=== PATIENT | male | born 1945 | race Caucasian/White ===

== ENCOUNTER 2017-03-01 17:57 | Emergency (ER) | payer OTHER ==
[2017-03-01 18:10] VITALS: BP 134/87
--- NOTE | 2017-03-01 18:18 | EDM.PDOC ---
[id number] 4d L ARM FISHHOOK Time Seen by Provider: 03/01/17 18:05 Source of Information: Reports: Patient History Limitations: Reports: No Limitations - History of Present Illness INITIAL COMMENTS - FREE TEXT/NARRATIVE: 71-year-old male with a small fishhook in the back of his left arm. No other complaints. Onset: Today Location: Reports: Upper Extremity, Left Severity: Mild - Related Data Allergies Allergy/AdvReac Type Severity Reaction Status Date / Time No Known Allergies Allergy Verified 11/28/13 14:24 Home Meds: Home Meds Acetaminophen/Diphenhydramine 11/28/13 [History] Ascorbic Acid 11/28/13 [History] Aspirin 11/28/13 [History] Atorvastatin Calcium 11/28/13 [History] Carnitine 11/28/13 [History] Chromium 11/28/13 [History] Clonazepam 11/28/13 [History] Coenzyme Q10 11/28/13 [History] Cyanocobalamin 11/28/13 [History] Fatty Acid 11/28/13 [History] Flaxseed Oil 11/28/13 [History] Folic Acid 11/28/13 [History] Grape Seed 11/28/13 [History] Losartan 11/28/13 [History] Magnesium Complex 11/28/13 [History] Metoprolol Tartrate 11/28/13 [History] Milk Thistle 11/28/13 [History] Castella Olivarez Extract 11/28/13 [History] [place] 3 Acid 11/28/13 [History] Resveratrol 11/28/13 [History] Ribose 11/28/13 [History] Selenium 11/28/13 [History] Vitamin D3 11/28/13 [History] Vitamin E 11/28/13 [History] Zinc Magnesium 11/28/13 [History] Past Medical History - Past Surgical History Cardiovascular Surgical History: Reports: Carotid Stents GI Surgical History: Reports: Hernia Repair/Other Social & Family History - Tobacco Use Smoking Status *Q: Never Smoker - Recreational Drug Use Recreational Drug Use: No ED ROS GENERAL - Review of Systems Review Of Systems: See Below Constitutional: Denies: Fever Respiratory: Denies: Shortness of Breath GI/Abdominal: Denies: Nausea, Vomiting Psychiatric: Reports: No Symptoms ED EXAM, SKIN/RASH Exam: See Below Exam Limited By: No Limitations General Appearance: Alert, No Apparent Distress Respiratory/Chest: No Respiratory Distress Extremities: Other (Exam is otherwise limited to the left arm. The patient has a hook through the epidermis on the posterior aspect of the arm. The linda was exposed.) Course - Vital Signs Last Recorded V/S: Last Vital Signs Temp 96.6 F 03/01/17 18:08 Pulse 76 03/01/17 18:08 Resp 14 03/01/17 18:08 BP 134/87 03/01/17 18:08 Pulse Ox 98 03/01/17 18:08 - Orders/Labs/Meds Meds: Medications Discontinued Medications Generic Name Dose Route Start Last Admin Trade Name Julian PRN Reason Stop Dose Admin Lidocaine HCl 5 ml 03/01/17 18:07 03/01/17 18:19 Xylocaine-Mpf 1% INJECT 03/01/17 18:08 Not Given ONETIME ONE - Re-Assessments/Exams Free Text/Narrative Re-Assessment/Exam: 03/01/17 18:16 No anesthesia was needed. The area was cleaned and sterilized, the linda cut off and the hook backed out without complication. The patient believes his tetanus status is up-to-date. Topical bacitracin was applied. Departure - Departure Time of Disposition: 18:22 Disposition: Home, Self-Care 01 Condition: good Clinical Impression: Foreign body of upper arm, left, superficial Qualifiers: Encounter type: initial encounter Qualified Code(s): S40.852A - Superficial foreign body of left upper arm, initial encounter - Discharge Information Instructions: Puncture Wound, [id number] Referrals: Amado Cota MD [Primary Care Provider] - Forms: ED Department Discharge Care Plan Goals: Keep wound clean while healing. Recheck if concerns of infection or not healing satisfactorily.
== END 2017-03-01 18:22 | disposition home or self-care (01) ==
LOC: JP.ED 17:57
DX: S40.852A Superficial foreign body of left upper arm, initial encounter (principal); Z98.890 Other specified postprocedural states
CPT/HCPCS: 99283

== ENCOUNTER 2018-01-08 01:59 | Emergency (ER) | payer OTHER ==
[2018-01-08] MEDS ORDERED: Aspirin 81 MG Tab.Chew PO ONE (02:12)
[2018-01-08] MEDS: Nitroglycerin 0.4 MG Tab.SL SL PRN ×3 (02:15→02:45)
[2018-01-08] MEDS: Sodium Chloride 0.9% 10 ML Syringe FLUSH PRN ×2 (02:17→02:40)
[2018-01-08] MEDS ORDERED: Clopidogrel 75 MG Tab PO ONE (02:24)
--- NOTE | 2018-01-08 02:26 | EDM.PDOC ---
ED HPI GENERAL MEDICAL PROBLEM - General Chief Complaint: Back Pain or Injury Stated Complaint: SWEATING Time Seen by Provider: 01/08/18 02:10 Source of Information: Reports: Patient, Old Records, RN History Limitations: Reports: No Limitations - History of Present Illness INITIAL COMMENTS - FREE TEXT/NARRATIVE: 72 yo male here from his home with mid back burning for about 44 hrs. The pain woke him up tonight and he was diaphoretic so he decided to come in because this diaphoresis reminded him of when he had a stroke in the past. He has also had some mild nausea and R shoulder pain. No SOB. He has no known hx of CAD. He smoked many yrs ago, not lately. Lives alone. Onset Date: 01/06/18 Duration: Hour(s): (44) Location: Reports: Back Quality: Reports: Burning Severity: Moderate Improves with: Reports: None Worsens with: Reports: None Context: Reports: Other (Previous CVA, has a pacemaker) Associated Symptoms: Reports: Diaphoresis, Nausea/Vomiting (mild nausea only.). 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: Reports: Other (see below) (none) Upper Back Pain Score (Numeric/FACES): 6 - Related Data Allergies Allergy/AdvReac Type Severity Reaction Status Date / Time No Known Allergies Allergy Verified 01/08/18 02:16 Home Meds: Home Meds Acetaminophen/Diphenhydramine 11/28/13 [History] Ascorbic Acid 11/28/13 [History] Aspirin 11/28/13 [History] Atorvastatin Calcium 11/28/13 [History] Carnitine 11/28/13 [History] Chromium 11/28/13 [History] Clonazepam 11/28/13 [History] Coenzyme Q10 11/28/13 [History] Cyanocobalamin 11/28/13 [History] Fatty Acid 11/28/13 [History] Flaxseed Oil 11/28/13 [History] Folic Acid 11/28/13 [History] Grape Seed 11/28/13 [History] Losartan 11/28/13 [History] Magnesium Complex 11/28/13 [History] Metoprolol Tartrate 11/28/13 [History] Milk Thistle 11/28/13 [History] [place] Extract 11/28/13 [History] [place] 3 Acid 11/28/13 [History] Resveratrol 11/28/13 [History] Ribose 11/28/13 [History] Selenium 11/28/13 [History] Vitamin D3 11/28/13 [History] Vitamin E 11/28/13 [History] Zinc Magnesium 11/28/13 [History] Past Medical History - Past Surgical History Cardiovascular Surgical History: Reports: Carotid Stents GI Surgical History: Reports: Hernia Repair/Other Social & Family History - Tobacco Use Smoking Status *Q: Never Smoker - Recreational Drug Use Recreational Drug Use: No ED ROS GENERAL - Review of Systems Review Of Systems: See Below Constitutional: Reports: Diaphoresis HEENT: Reports: No Symptoms Respiratory: Reports: No Symptoms Cardiovascular: Reports: No Symptoms GI/Abdominal: Reports: Nausea. Denies: Abdominal Pain, Black Stool, Bloody Stool, Constipation, Diarrhea, Distension, Hematemesis, Hematochezia, Vomiting : Reports: No Symptoms Musculoskeletal: Reports: Back Pain Skin: Reports: Diaphoresis Neurological: Reports: No Symptoms Psychiatric: Reports: No Symptoms ED EXAM, UPPER BACK/NECK PAIN - Physical Exam Exam: See Below Exam Limited By: No Limitations General Appearance: Alert, WD/WN, No Apparent Distress Eye Exam: Bilateral Eye: Normal Inspection Ears Exam: Normal External Exam, Normal Canal, Hearing Grossly Normal, Normal TMs Nose Exam: Normal Inspection, Normal Mucousa, No Blood Throat/Mouth Exam: Normal Inspection, Normal Lips, Normal Oropharynx, Normal Voice, No Airway Compromise Head Exam: Atraumatic, Normocephalic Neck Exam: Non-Tender, Full Range of Motion, Normal Alignment Cardiovascular/Respiratory: Regular Rate, Rhythm, No M/R/G, Normal Breath Sounds , No Respiratory Distress GI/Abdominal: Normal Bowel Sounds, Soft, Non-Tender, No Distention Back Exam: Normal Inspection. 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 leads, ST depression V1-V4) QT: Normal Comparison: NA - No Prior EKG Course - Vital Signs Text/Narrative:: Improved, but not resolved with SL NTG x 3 Patient prefers to go to Dr. Ray Caballero, cardiology accepts @ 0320h , ALS transfer planned. Last Recorded V/S: Last Vital Signs Temp 35.7 C 01/08/18 02:42 Pulse 60 01/08/18 03:08 Resp 16 01/08/18 02:44 BP 119/79 01/08/18 03:08 Pulse Ox 94 L 01/08/18 02:44 - Orders/Labs/Meds Orders: Active Orders 24 hr Category Date Time Status Cardiac Monitoring [RC] .As Directed Care 01/08/18 02:13 Active EKG Documentation Completion [RC] ASDIRECTED Care 01/08/18 02:13 Active Chest 1V Frontal [CR] Stat Exams 01/08/18 02:26 Taken UA W/MICROSCOPIC [URIN] Stat Lab 01/08/18 02:15 Ordered Heparin Sodium/D5W [Heparin 25,000 Units in D5W 500 ML] Med 01/08/18 03:15 Ordered 25,000 units in 500 ml IV TITRATE Sodium Chloride 0.9% [Saline Flush] Med 01/08/18 02:13 Active 10 ml FLUSH ASDIRECTED PRN Saline Lock Insert [OM.PC] Routine Oth 01/08/18 02:13 Ordered EKG 12 Lead [EK] Routine Ther 01/08/18 02:13 Ordered Medication Orders Heparin Sodium/Dextrose (Heparin 25,000 Units In D5w 500 Ml) 25,000 units in 500 mls @ 18 mls/hr IV TITRATE KIARA PRN Reason: 900 UNITS/HR Sodium Chloride (Saline Flush) 10 ml FLUSH ASDIRECTED PRN PRN Reason: Keep Vein Open Last Admin: 01/08/18 02:40 Dose: 10 ml Admin: 01/08/18 02:17 Dose: 10 ml Labs: Laboratory Tests 01/08/18 01/08/18 Range/Units 02:28 02:28 WBC 9.2 (4.5-11.0) K/uL RBC 4.56 (4.30-5.90) M/uL Hgb 14.2 (12.0-15.0) g/dL Hct 42.3 (40.0-54.0) % MCV 93 (80-98) fL MCH 31 (27-31) pg MCHC 34 (32-36) % Plt Count 219 (150-400) K/uL Sodium 144 (140-148) mmol/L Potassium 3.6 (3.6-5.2) mmol/L Chloride 107 (100-108) mmol/L Carbon Dioxide 23 (21-32) mmol/L Anion Gap 13.7 (5.0-14.0) mmol/L BUN 25 H (7-18) mg/dL Creatinine 1.4 H (0.8-1.3) mg/dL Est Cr Clr Drug Dosing 46.99 mL/min Estimated GFR (MDRD) 50 L (>60) Glucose 147 H (74-106) mg/dL Calcium 9.0 (8.5-10.1) mg/dL Troponin I 0.493 H* (0.000-0.056) ng/mL Meds: Medications Generic Name Dose Route Start Last Admin Trade Name Freq PRN Reason Stop Dose Admin Heparin Sodium/Dextrose 25,000 units in 500 mls @ 18 mls/hr 01/08/18 03:15 Heparin 25,000 Units In D5w 500 Ml IV TITRATE KIARA 900 UNITS/HR Sodium Chloride 10 ml 01/08/18 02:13 01/08/18 02:40 Saline Flush FLUSH 10 ml ASDIRECTED PRN Administration Keep Vein Open Discontinued Medications Generic Name Dose Route Start Last Admin Trade Name Freq PRN Reason Stop Dose Admin Aspirin 324 mg 01/08/18 02:12 01/08/18 02:16 Aspirin PO 01/08/18 02:13 324 mg ONETIME ONE Administration Clopidogrel Bisulfate 600 mg 01/08/18 02:24 01/08/18 02:29 Plavix PO 01/08/18 02:25 600 mg ONETIME ONE Administration Heparin Sodium (Porcine) 4,000 units 01/08/18 03:01 01/08/18 03:09 Heparin Sodium IVPUSH 01/08/18 03:02 4,000 units .BOLUS ONE Administration Metoprolol Tartrate 25 mg 01/08/18 03:03 01/08/18 03:08 Lopressor PO 01/08/18 03:04 25 mg ONETIME ONE Administration Morphine Sulfate 2 mg 01/08/18 03:11 Morphine IVPUSH 01/08/18 03:12 ONETIME ONE Nitroglycerin 0.4 mg 01/08/18 02:15 01/08/18 02:45 Nitrostat SL 0.4 mg Q5M PRN Administration Chest Pain - Radiology Interpretation Free Text/Narrative:: CXR-negative Departure - Departure Time of Disposition: 03:30 Disposition: DC/Tfer to Acute Hospital 02 Condition: Serious Clinical Impression: Myocardial infarction Qualifiers: Myocardial infarction type: ST elevation myocardial infarction Involved coronary artery: unspecified coronary artery Qualified Code(s): I21.3 - ST elevation (STEMI) myocardial infarction of unspecified site - Discharge Information Referrals: Amado Cota MD [Primary Care Provider] - Forms: ED Department Discharge - My Orders Last 24 Hours: My Active Orders 01/08/18 02:13 Cardiac Monitoring [RC] .As Directed EKG Documentation Completion [RC] ASDIRECTED Sodium Chloride 0.9% [Saline Flush] 10 ml FLUSH ASDIRECTED PRN Saline Lock Insert [OM.PC] Routine EKG 12 Lead [EK] Routine 01/08/18 02:15 UA W/MICROSCOPIC [URIN] Stat 01/08/18 02:26 Chest 1V Frontal [CR] Stat 01/08/18 03:15 Heparin Sodium/D5W [Heparin 25,000 Units in D5W 500 ML] 25,000 units in 500 ml IV TITRATE - Assessment/Plan Last 24 Hours: My Active Orders 01/08/18 02:13 Cardiac Monitoring [RC] .As Directed EKG Documentation Completion [RC] ASDIRECTED Sodium Chloride 0.9% [Saline Flush] 10 ml FLUSH ASDIRECTED PRN Saline Lock Insert [OM.PC] Routine EKG 12 Lead [EK] Routine 01/08/18 02:15 UA W/MICROSCOPIC [URIN] Stat 01/08/18 02:26 Chest 1V Frontal [CR] Stat 01/08/18 03:15 Heparin Sodium/D5W [Heparin 25,000 Units in D5W 500 ML] 25,000 units in 500 ml IV TITRATE
[2018-01-08] MEDS ORDERED: Heparin Sodium 5,000 Units/ML Vial IVPUSH ONE (03:01)
[2018-01-08] MEDS ORDERED: Metoprolol Tartrate 25 MG Tab PO ONE (03:03)
[2018-01-08] MEDS ORDERED: Morphine 2 MG/ML Syringe IVPUSH ONE ×2 (03:11→03:34)
[2018-01-08] MEDS ORDERED: Heparin Sodium/D5W 25,000 UNITS/500 ML BAG IV SCH (03:15)
[2018-01-08 03:41] VITALS: BP 122/86
--- NOTE | 2018-01-08 08:54 | CR ---
Chest 1V Frontal FINDINGS: There is a cardiac pacemaker on the left with 2 intact leads. There is cardiac enlargement. The vascular structures are within normal limits. There are no infiltrates or effusions. Impression: 1. No acute findings.
== END 2018-01-08 04:10 ==
LOC: JP.ED 01:59
DX: I21.3 ST elevation (STEMI) myocardial infarction of unspecified site (principal); Z87.891 Personal history of nicotine dependence
CPT/HCPCS: 36415; 71045; 80048; 84484; 85027; 93005; 96365; 96375; 96376; 99285; A9270; J1644; J2270; J7050

== ENCOUNTER 2019-09-29 07:20 | Day surgery (SDC) | payer OTHER ==
[2019-09-29] MEDS ORDERED: Sodium Chloride 0.9% 10 ML Syringe FLUSH PRN (08:00)
[2019-09-29 08:58] VITALS: BP 130/93; PULSE 60
--- NOTE | 2019-09-29 11:00 | OR ---
DATE OF PROCEDURE: 09/29/2019 SURGEON: Chana Logan MD POSTOPERATIVE CARE: Postoperative care will be provided mainly at the [address] [place] [address] [facility] in conjunction with [facility]. PREOPERATIVE DIAGNOSIS: Cataract, right eye. POSTOPERATIVE DIAGNOSIS: Cataract, right eye. PROCEDURE: Phacoemulsification with intraocular lens placement, right eye. ANESTHESIA: Topical and intracameral. ESTIMATED BLOOD LOSS: Minimal. COMPLICATIONS: None. PATHOLOGY SPECIMENS: None. SURGICAL FINDINGS: None. INDICATION FOR PROCEDURE: The patient is a 74-year-old male with history of a visually significant cataract in the right eye, which interfered with activities of daily living. This consisted of a nuclear sclerosis cataract. Following careful discussion of the risks, benefits and alternatives to cataract extraction with intraocular lens placement including blindness and , the patient elected to proceed, and informed, written consent was obtained prior to the procedure. DESCRIPTION OF THE PROCEDURE: The patient was previously identified, and a saran placed above the right eye. All sources, including the patient, indicated that the right eye was the correct eye. The patient was subsequently taken to the operating room where standard monitors were applied. The patient was then prepped and draped in the usual sterile fashion for ophthalmic surgery. Attention was first directed at the 12 o'clock position where a paracentesis port was fashioned. Shugar solution followed by Viscoat was instilled into the eye. Attention was then directed to the 8:30 position where a triplanar incision was made in a near-clear manner using a keratome. A continuous capsulorrhexis was then made using a combination of the cystotome and Utrata forceps. Hydrodissection was achieved using a balanced salt solution, and the lens rotated nicely. Phacoemulsification was then done using a modified [id number] technique without complication. Phaco time was 12.86 CDE. The remaining cortex was removed using the irrigation/aspiration handpiece. Provisc was then instilled into the eye. A Technis lens, model [id number], at 20.0 diopters was then placed in the capsular bag using an [place] injector. The remaining viscoelastic was removed using the irrigation/aspiration forceps. All wounds were then checked and found to be watertight. The lid speculum and drapes were removed. Maxitrol ointment was placed in the patient's right eye, and the eye was shielded. The patient tolerated the procedure well. The patient was instructed to follow up tomorrow. All needle and sponge counts were correct at the end of the procedure. Chana Logan MD /[id number]
== END 2019-09-29 09:27 | disposition home or self-care (01) ==
LOC: JP.SDS 07:20
PROVIDERS: ATTEND Ophthalmology
DX: H25.11 Age-related nuclear cataract, right eye (principal)
CPT/HCPCS: V2632

== ENCOUNTER 2019-11-10 06:53 | Day surgery (SDC) | payer OTHER ==
[~2019-11-10 06:53] MED LIST: Sodium Chloride 0.9% 10 ML Syringe FLUSH PRN
[2019-11-10 09:13] VITALS: BP 137/96; PULSE 63
--- NOTE | 2019-11-10 14:42 | OR ---
DATE OF PROCEDURE: 11/10/2019 SURGEON: Chana Logan MD POSTOPERATIVE CARE: Postoperative care will be provided mainly at the [address] [place] [address] [facility] in conjunction with [facility]. PREOPERATIVE DIAGNOSIS: Cataract, left eye. POSTOPERATIVE DIAGNOSIS: Cataract, left eye. PROCEDURE: Phacoemulsification with intraocular lens placement, left eye. ANESTHESIA: Topical and intracameral. ESTIMATED BLOOD LOSS: Minimal. COMPLICATIONS: None. PATHOLOGY SPECIMENS: None. SURGICAL FINDINGS: None. INDICATION FOR PROCEDURE: The patient is a 74-year-old male with history of a visually significant cataract in the left eye, which interfered with activities of daily living. This consisted of a nuclear sclerosis cataract. Following careful discussion of the risks, benefits and alternatives to cataract extraction with intraocular lens placement including blindness and , the patient elected to proceed, and informed, written consent was obtained prior to the procedure. DESCRIPTION OF THE PROCEDURE: The patient was previously identified, and a saran placed above the left eye. All sources, including the patient, indicated that the left eye was the correct eye. The patient was subsequently taken to the operating room where standard monitors were applied. The patient was then prepped and draped in the usual sterile fashion for ophthalmic surgery. Attention was first directed at the 12 o'clock position where a paracentesis port was fashioned. Shugar solution followed by Viscoat was instilled into the eye. Attention was then directed to the 8:30 position where a triplanar incision was made in a near-clear manner using a keratome. A continuous capsulorrhexis was then made using a combination of the cystotome and Utrata forceps. Hydrodissection was achieved using a balanced salt solution, and the lens rotated nicely. Phacoemulsification was then done using a modified [id number]-grl-dumtqiz technique without complication. Phaco time was 8.40 CDE. The remaining cortex was removed using the irrigation/aspiration handpiece. Provisc was then instilled into the eye. A Technis lens, model [id number], at 20.0 diopters was then placed in the capsular bag using an [place] injector. The remaining viscoelastic was removed using the irrigation/aspiration forceps. All wounds were then checked and found to be watertight. The lid speculum and drapes were removed. Maxitrol ointment was placed in the patient's left eye, and the eye was shielded. The patient tolerated the procedure well. The patient was instructed to follow up tomorrow. All needle and sponge counts were correct at the end of the procedure. Chana Logan MD /[id number]
== END 2019-11-10 09:22 | disposition home or self-care (01) ==
LOC: JP.SDS 06:53
PROVIDERS: ATTEND Ophthalmology
DX: H25.12 Age-related nuclear cataract, left eye (principal)
CPT/HCPCS: V2632

== ENCOUNTER 2021-05-26 11:36 | Emergency (ER) | payer OTHER ==
[2021-05-26 12:21] VITALS: BP 151/99; PULSE 101
--- NOTE | 2021-05-26 12:50 | EDM.PDOC ---
ED HPI GENERAL MEDICAL PROBLEM - General Chief Complaint: Respiratory Problem Stated Complaint: PAINFUL COUGH, CHEST CONGESTION Time Seen by Provider: 05/26/21 12:30 Source of Information: Reports: Patient History Limitations: Reports: No Limitations - History of Present Illness INITIAL COMMENTS - FREE TEXT/NARRATIVE: Patient in today with sinus congestion and cough. Cough is keeping him up at night he is not getting any rest. He is being treated for prostate cancer. He is Covid vaccinated and no concern of any ill contacts in recent days. Patient does note he has seasonal allergies all of the time but he does not know what he is allergic to in particular. He has noticed an increase in the amount of phlegm and nasal discharge over the last several days. Patient does not take anything at this time for his allergies. Onset: Gradual Onset Date: 05/23/21 Duration: Getting Worse Location: Reports: Head (Stuffiness in his head face sinuses), Face Quality: Reports: Ache, Pressure Severity: Moderate Improves with: Reports: None Worsens with: Reports: None Context: Reports: Other (Allergy related) Associated Symptoms: Reports: Headaches. 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: Other (see below) (None) - Related Data Allergies Allergy/AdvReac Type Severity Reaction Status Date / Time No Known Allergies Allergy Verified 05/26/21 12:31 Home Meds: Home Meds Aspirin [Adult Low Dose Aspirin EC] 81 mg PO DAILY 09/26/19 [History] Losartan Potassium 50 mg PO DAILY 09/26/19 [History] carvediloL [Carvedilol] 6.25 mg PO DAILY 11/10/19 [History] Finasteride [Propecia] 1 mg PO DAILY 05/26/21 [History] Fluticasone Propionate [Flonase] 16 gm NS BID #16 ml 05/26/21 [Rx] predniSONE [Prednisone] 20 mg PO DAILY 5 Days #5 tablet 05/26/21 [Rx] Past Medical History HEENT History: Reports: Cataract, Hard of Hearing, Other (See Below) Other HEENT History: ruptured ear drum Cardiovascular History: Reports: CAD, High Cholesterol, Hypertension, [place], Pacemaker Gastrointestinal History: Reports: Chronic Constipation, Chronic Diarrhea, Colon Polyp, Hemorrhoids Genitourinary History: Reports: BPH, Prostate Disorder Musculoskeletal History: Reports: Arthritis, Back Pain, Chronic, Fibromyalgia, Other (See Below) Other Musculoskeletal History: Disc Degenerative Disease Neurological History: Reports: CVA Psychiatric History: Reports: Anxiety, Depression, Panic Attack Hematologic History: Reports: Anticoagulation Therapy Oncologic (Cancer) History: Reports: Prostate Dermatologic History: Reports: Other (See Below) Other Dermatologic History: "itchy skin" - Infectious Disease History Infectious Disease History: Reports: Scarlet Fever - Past Surgical History HEENT Surgical History: Reports: Cataract Surgery Cardiovascular Surgical History: Reports: Carotid Stents, Pacer GI Surgical History: Reports: Colonoscopy, Hernia Repair/Other Male Surgical History: Reports: None Neurological Surgical History: Reports: None Musculoskeletal Surgical History: Reports: None Social & Family History - Tobacco Use Tobacco Use Status *Q: Never Tobacco User - Caffeine Use Caffeine Use: Reports: Coffee ED ROS GENERAL - Review of Systems Review Of Systems: See Below Constitutional: Denies: Fever, Chills HEENT: Reports: Rhinitis, Sinus Problem, Throat Pain Respiratory: Reports: Cough Cardiovascular: Reports: No Symptoms Endocrine: Reports: No Symptoms GI/Abdominal: Reports: No Symptoms Musculoskeletal: Reports: No Symptoms Neurological: Reports: No Symptoms ED EXAM, GENERAL - Physical Exam Exam: See Below Exam Limited By: No Limitations General Appearance: Alert, Mild Distress Ears: Normal External Exam, Normal Canal, Hearing Grossly Normal, Normal TMs Nose: Nasal Tenderness, Nasal Drainage, Clear Rhinorrhea Throat/Mouth: Normal Inspection, Normal Lips, Normal Teeth, Normal Gums, Normal Voice, Inflammation (irritation/redness) Head: Atraumatic. No: Facial Swelling, Facial Tenderness, Sinus Tenderness Neck: Normal Inspection Course - Vital Signs Last Recorded V/S: Last Vital Signs Temp 36.7 C 05/26/21 12:30 Pulse 101 H 05/26/21 12:30 Resp 18 05/26/21 12:30 BP 151/99 H 05/26/21 12:30 Pulse Ox 97 05/26/21 12:30 Departure - Departure Time of Disposition: 13:19 Disposition: Home, Self-Care 01 Condition: Good Clinical Impression: Seasonal allergies - Discharge Information Prescriptions: Fluticasone Propionate [Flonase] 16 gm NS BID #16 ml predniSONE [Prednisone] 20 mg PO DAILY 5 Days #5 tablet Instructions: Allergic Rhinitis, Adult, [id number] Referrals: Amado Cota MD [Primary Care Provider] - Forms: ED Department Discharge Additional Instructions: Take prednisone in the morning with food. Utilize Flonase twice daily. Increase fluid intake. If discharge turns green or other color, difficulty breathing or develop a fever return for further evaluation with your primary care. Sepsis Event Note (ED) - Evaluation Sepsis Screening Result: No Definite Risk - Focused Exam Vital Signs: Vital Signs Temp Pulse Resp BP Pulse Ox 05/26/21 12:30 36.7 C 101 H 18 151/99 H 97 05/26/21 12:19 36.7 C 101 H 18 151/99 H 97
== END 2021-05-26 13:19 | disposition home or self-care (01) ==
LOC: JP.ED 11:36
DX: J30.2 Other seasonal allergic rhinitis (principal); I25.10 Atherosclerotic heart disease of native coronary artery without angina pectoris; I10 Essential (primary) hypertension; I25.2 Old myocardial infarction; M19.90 Unspecified osteoarthritis, unspecified site; Z79.01 Long term (current) use of anticoagulants; Z79.82 Long term (current) use of aspirin; Z79.899 Other long term (current) drug therapy
CPT/HCPCS: 99283

== ENCOUNTER 2021-12-06 19:07 | Emergency (ER) | payer OTHER ==
[2021-12-06 19:28] VITALS: BP 116/82; PULSE 97
[2021-12-06] MEDS ORDERED: Alum Hydrox/Mag Hydrox/Simeth 15 ML, Lidocaine 2% 15 ML PO ONE ×2 (20:07)
[2021-12-06] MEDS ORDERED: Pantoprazole 40 MG Tab.CR PO ONE (21:36)
[2021-12-06] MEDS ORDERED: LORazepam 1 MG Tab PO ONE (21:58)
[2021-12-06] MEDS ORDERED: Ondansetron 4 MG Tab.DIS PO ONE (21:58)
[2021-12-06] MEDS ORDERED: Ondansetron 4 MG Tab.DIS ONE (22:00)
[2021-12-06] MEDS ORDERED: LORazepam 1 MG Tab ONE (22:00)
[2021-12-07] MEDS ORDERED: Pantoprazole 40 MG Tab.CR PO ONE (21:28)
== END 2021-12-06 21:51 | disposition home or self-care (01) ==
LOC: JP.ED 19:07
DX: R10.13 Epigastric pain (principal); I25.10 Atherosclerotic heart disease of native coronary artery without angina pectoris; E78.00 Pure hypercholesterolemia, unspecified; I10 Essential (primary) hypertension; I25.2 Old myocardial infarction; N40.0 Benign prostatic hyperplasia without lower urinary tract symptoms; Z86.73 Personal history of transient ischemic attack (TIA), and cerebral infarction without residual deficits; Z95.0 Presence of cardiac pacemaker; Z88.8 Allergy status to other drugs, medicaments and biological substances; Z79.82 Long term (current) use of aspirin; Z79.899 Other long term (current) drug therapy
CPT/HCPCS: 36415; 80053; 83690; 85025; 99284; A9270; Q0162

== ENCOUNTER 2024-11-01 18:26 | Emergency (ER) | payer OTHER ==
[2024-11-01 19:40] LABS: BASOPHILS ABSOLUTE AUTO 0.07 K/uL (0.00-0.10); BASOPHILS PERCENT AUTO 0.6 % (0.1-1.3); EOSINOPHILS ABSOLUTE AUTO 0.28 K/uL (0.00-0.40); EOSINOPHILS PERCENT AUTO 2.5 % (0.0-5.4); HEMATOCRIT 36.3 % (38.4-49.7); HEMOGLOBIN 12.3 g/dL (12.9-16.9); IMMATURE GRAN ABSOLUTE AUTO 0.04 K/uL (0.00-0.23); IMMATURE GRAN PERCENT AUTO 0.4 % (0.0-0.7); LYMPHOCYTES ABSOLUTE AUTO 1.84 K/uL (0.8-3.3); LYMPHOCYTES PERCENT AUTO 16.5 % (11.4-47.7); MEAN CORPUSCULAR HGB CONC 33.9 g/dL (31.6-35.5); MEAN CORPUSCULAR VOLUME 100.3 fL (81.4-99.0); MONOCYTES ABSOLUTE AUTO 1.14 K/uL (0.20-0.90); MONOCYTES PERCENT AUTO 10.2 % (3.3-12.6); NEUTROPHILS ABSOLUTE AUTO 7.78 K/uL (1.0-7.6); NEUTROPHILS PERCENT AUTO 69.8 % (40.0-78.1); PLATELET COUNT,PLT 202 K/uL (130-375); RED BLOOD CELL COUNT 3.62 M/uL (4.14-5.76); WHITE BLOOD CELL COUNT,WBC 11.2 K/uL (3.2-11.0)
[2024-11-01] MEDS: Alum Hydrox/Mag Hydrox/Simeth 15 ML, Lidocaine 2% 15 ML PO ONE (19:44)
[2024-11-01 20:03] LABS: A/G RATIO 1.3 (1.2-2.2); ALANINE AMINOTRANSFERASE,ALT 21 U/L (12-78); ALBUMIN 3.9 g/dL (3.4-5.0); ALKALINE PHOSPHATASE 117 U/L (46-116); ANION GAP 15.6 mmol/L (5.0-14.0); ASPARTATE AMNIOTRANSFERASE,AST 19 U/L (15-37); BILIRUBIN TOTAL 1.3 mg/dL (0.2-1.0); BLOOD UREA NITROGEN,BUN 21 mg/dL (7-18); CALCIUM 9.6 mg/dL (8.5-10.1); CARBON DIOXIDE,CO2 24 mmol/L (21-32); CHLORIDE,CL 103 mmol/L (100-108); CREATININE 1.4 mg/dL (0.8-1.3); EST CRCL DRUG DOSING (CG) 42.08 mL/min; ESTIMATED GFR 51 mL/min (>60); GLUCOSE RANDOM 99 mg/dL (74-106); POTASSIUM,K 4.6 mmol/L (3.6-5.2); SODIUM,NA 138 mmol/L (140-148); TROPONIN I HIGH SENSITIVITY 12.3 pg/mL (<=60.3)
[2024-11-01] MEDS: Calcium Carbonate 500 MG Tab.Chew PO ONE (21:00)
[2024-11-01] MEDS: Pantoprazole 40 MG Tab.CR PO ONE (21:27)
[2024-11-01] MEDS: Ondansetron 4 MG Tab.DIS PO ONE (21:35)
[2024-11-01 21:52] VITALS: PULSE 76
[2024-11-01 21:53] VITALS: BP 174/102
== END 2024-11-01 21:57 | disposition home or self-care (01) ==
LOC: JP.ED 18:26
DX: K21.9 Gastro-esophageal reflux disease without esophagitis (principal); I25.10 Atherosclerotic heart disease of native coronary artery without angina pectoris; I25.2 Old myocardial infarction; I10 Essential (primary) hypertension; E78.00 Pure hypercholesterolemia, unspecified; M19.90 Unspecified osteoarthritis, unspecified site; Z86.73 Personal history of transient ischemic attack (TIA), and cerebral infarction without residual deficits; Z88.8 Allergy status to other drugs, medicaments and biological substances; Z79.82 Long term (current) use of aspirin; Z79.899 Other long term (current) drug therapy
CPT/HCPCS: 36415; 80053; 83690; 84484; 85025; 93005; 99284; A9270; Q0162

== ENCOUNTER 2024-12-19 08:19 | Day surgery (SDC) | payer OTHER ==
[2024-12-19] MEDS ORDERED: Propofol 200 MG/20 ML SDV ONE (08:28)
[2024-12-19] MEDS ORDERED: fentaNYL 100 MCG/2 ML SDV ONE (08:28)
[2024-12-19] MEDS ORDERED: Midazolam 1 MG/ML 2 ML SDV ONE (08:28)
[2024-12-19] MEDS: Lactated Ringers 1,000 ML IV SCH (10:18)
[2024-12-19] MEDS: Nozin Nasal Sanitizer NASBOTH SCH ×2 (10:19→20:09)
[2024-12-19] MEDS: ceFAZolin 2 GM in Premix Bag 1 BAG IV ONE (12:40)
[2024-12-19] MEDS ORDERED: Lactated Ringers 1,000 ML IV SCH (14:00)
[2024-12-19] MEDS: Bupivacaine 0.5% 30 ML SDV ONE (14:00)
[2024-12-19] MEDS ORDERED: Docusate Sodium 100 MG Cap PO PRN (14:11)
[2024-12-19] MEDS ORDERED: Magnesium Hydroxide 400 MG/5 ML Susp 30 ML Cup PO PRN (14:11)
[2024-12-19] MEDS ORDERED: Morphine 2 MG/ML SYRINGE IVPUSH PRN (14:11)
[2024-12-19] MEDS ORDERED: oxyCODONE 5 MG Tab PO PRN ×2 (14:11)
[2024-12-19] MEDS ORDERED: Benzonatate 100 MG Cap PO PRN (14:15)
[2024-12-19] MEDS ORDERED: Diclofenac Sodium 1% Gel 100 GM Tube TOP SCH (14:15)
[2024-12-19] MEDS: Ondansetron 4 MG/2 ML SDV IVPUSH PRN (15:03)
[2024-12-19] MEDS: Acetaminophen 325 MG Tab PO SCH (16:59)
[2024-12-19] MEDS: Ketorolac 15 MG/ML SDV IVPUSH PRN (20:04)
[2024-12-19] MEDS: ceFAZolin 2 GM in Premix Bag 1 BAG IV SCH (20:06)
[2024-12-19] MEDS: atorvaSTATin 20 MG Tab PO SCH (20:07)
[2024-12-19] MEDS: Carvedilol 12.5 MG Tab PO SCH (20:07)
[2024-12-19] MEDS ORDERED: Nozin Nasal Sanitizer NASBOTH SCH (21:00)
[2024-12-19] MEDS: Sodium Chloride 0.9% 1,000 ML IV SCH (21:44)
[2024-12-20] MEDS: Losartan 50 MG Tab PO SCH (08:12)
[2024-12-20] MEDS: Cholecalciferol (Vitamin D3) 25 MCG Tab PO SCH (08:12)
[2024-12-20] MEDS: Aspirin 325 MG Tab.EC PO SCH (08:12)
[2024-12-20] MEDS: Finasteride 5 MG Tab PO SCH (08:12)
[2024-12-20] MEDS: hydrOXYzine HCl 25 MG Tab PO SCH (08:12)
[2024-12-20] MEDS ORDERED: Sodium Chloride 0.9% 10 ML Syringe IV PRN (08:27)
[2024-12-20 11:51] VITALS: BP 126/69; PULSE 64
[2024-12-20] MEDS ORDERED: BICALUTAMIDE 50 MG PO SCH (21:00)
== END 2024-12-20 14:45 | disposition home or self-care (01) ==
LOC: JP.SDS 08:19 → JP.MS 14:11 → JP.SDS 12-20 14:45
PROVIDERS: ATTEND Specialist
DX: M17.12 Unilateral primary osteoarthritis, left knee (principal); I12.9 Hypertensive chronic kidney disease with stage 1 through stage 4 chronic kidney disease, or unspecified chronic kidney disease; N18.9 Chronic kidney disease, unspecified; E78.5 Hyperlipidemia, unspecified; I25.10 Atherosclerotic heart disease of native coronary artery without angina pectoris; Z88.8 Allergy status to other drugs, medicaments and biological substances
CPT/HCPCS: 01400; 27446; 73560; 93005; 93010; 97110; 97116; 97161; 97165; 97530; 97535; A9270; C1713; C1776; J0665; J0690; J1885; J2250; J2405; J2704; J3010; J7030; J7120

== ENCOUNTER 2025-04-10 07:49 | Inpatient (IN) | payer MEDICARE, OTHER ==
[2025-04-10 08:28] LABS: HEMATOCRIT 36.2 % (38.4-49.7); HEMOGLOBIN 11.8 g/dL (12.9-16.9); MEAN CORPUSCULAR HEMOGLOBIN 33.4 pg (31.6-35.5); MEAN CORPUSCULAR HGB CONC 32.6 g/dL (31.6-35.5); MEAN CORPUSCULAR VOLUME 102.5 fL (81.4-99.0); RED BLOOD CELL COUNT 3.53 M/uL (4.14-5.76); WHITE BLOOD CELL COUNT,WBC 7.5 K/uL (3.2-11.0)
[2025-04-10 08:43] LABS: ANION GAP 11.8 mmol/L (5.0-14.0); BLOOD UREA NITROGEN,BUN 22 mg/dL (7-18); CALCIUM 9.2 mg/dL (8.5-10.1); CARBON DIOXIDE,CO2 23 mmol/L (21-32); CHLORIDE,CL 105 mmol/L (100-108); CREATININE 1.5 mg/dL (0.8-1.3); ESTIMATED GFR 47 mL/min (>60); GLUCOSE RANDOM 98 mg/dL (74-106); POTASSIUM,K 3.6 mmol/L (3.6-5.2); SODIUM,NA 140 mmol/L (140-148)
[2025-04-10] MEDS: Nozin Nasal Sanitizer NASBOTH SCH ×2 (08:53→21:16)
[2025-04-10] MEDS: Lactated Ringers 1,000 ML IV SCH (08:53)
[2025-04-10] MEDS ORDERED: ceFAZolin 2 GM in Sodium Chloride 0.9% 100 ML IV ONE (09:00)
[2025-04-10] MEDS ORDERED: Midazolam 1 MG/ML 2 ML SDV ONE ×2 (09:53→11:28)
[2025-04-10] MEDS ORDERED: fentaNYL 100 MCG/2 ML SDV ONE (09:53)
[2025-04-10] MEDS ORDERED: Propofol 200 MG/20 ML SDV ONE ×2 (09:53→12:58)
[2025-04-10] MEDS: ceFAZolin 2 GM in Premix Bag 1 BAG IV ONE (11:07)
[2025-04-10] MEDS: Bupivacaine 0.5% 50 ML MDV ONE (12:05)
[2025-04-10] MEDS ORDERED: oxyCODONE 5 MG Tab PO PRN ×2 (13:34)
[2025-04-10] MEDS ORDERED: Morphine 2 MG/ML SYRINGE IV PRN (13:35)
[2025-04-10] MEDS ORDERED: Magnesium Hydroxide 400 MG/5 ML Susp 30 ML Cup PO PRN (13:35)
[2025-04-10] MEDS ORDERED: Docusate Sodium 100 MG Cap PO PRN (13:35)
[2025-04-10] MEDS: Ondansetron 4 MG/2 ML SDV IVPUSH ONE (14:08)
[2025-04-10] MEDS: Acetaminophen 325 MG Tab PO SCH (15:00)
[2025-04-10] MEDS: Sodium Chloride 0.9% 1,000 ML IV SCH (15:15)
[2025-04-10] MEDS: Ondansetron 4 MG/2 ML SDV IVPUSH PRN (16:38)
[2025-04-10] MEDS: Ketorolac 15 MG/ML SDV IVPUSH PRN (17:58)
[2025-04-10] MEDS: ceFAZolin 2 GM in Premix Bag 1 BAG IV SCH (17:59)
[2025-04-10] MEDS ORDERED: Non-Formulary Medication 1 Each (Carvedilol [Carvedilol] 6.25 MG Tablet) PO SCH (21:00)
[2025-04-10] MEDS: Carvedilol 12.5 MG Tab PO SCH (21:18)
[2025-04-11 06:02] LABS: HEMOGLOBIN 8.8 g/dL (12.9-16.9); MEAN CORPUSCULAR HEMOGLOBIN 33.1 pg (31.6-35.5); MEAN CORPUSCULAR HGB CONC 32.6 g/dL (31.6-35.5); MEAN CORPUSCULAR VOLUME 101.5 fL (81.4-99.0); RED BLOOD CELL COUNT 2.66 M/uL (4.14-5.76); WHITE BLOOD CELL COUNT,WBC 8.4 K/uL (3.2-11.0)
[2025-04-11] MEDS: Aspirin 325 MG Tab.EC PO SCH (08:07)
[2025-04-11] MEDS: Finasteride 5 MG Tab PO SCH (08:07)
[2025-04-11] MEDS: Losartan 50 MG Tab PO SCH (08:08)
[2025-04-12 11:52] VITALS: BP 92/59; PULSE 66
== END 2025-04-12 13:00 | disposition home or self-care (01) | DRG 470 ==
LOC: JP.SDS 07:49 → JP.MS 13:35
PROVIDERS: ADMIT Specialist; ATTEND Specialist
PROC: 0SRB06A Replacement of Left Hip Joint with Oxidized Zirconium on Polyethylene Synthetic Substitute, Uncemented, Open Approach (ICD-10-PCS; principal; 2025-04-10 09:30)
DX: M16.12 Unilateral primary osteoarthritis, left hip (principal); Z79.82 Long term (current) use of aspirin; Z79.899 Other long term (current) drug therapy
CPT/HCPCS: 01214-QZ; 36415; 72170; 72170-26; 80048; 85027; 97110-GP; 97161-GP; 97165-GO; 97530-GP; 97535-GO; A9270-GY; C1713; C1776; J0665; J0690; J1885; J2250; J2405; J2704; J3010; J7030; J7120

== ENCOUNTER 2025-07-31 05:58 | Inpatient (IN) | payer MEDICARE, OTHER ==
[2025-07-31 06:32] LABS: PLATELET COUNT,PLT 220.0 K/uL (130-375); RED BLOOD CELL COUNT 3.39 M/uL (4.14-5.76); WHITE BLOOD CELL COUNT,WBC 6.1 K/uL (3.2-11.0)
[2025-07-31] MEDS: Nozin Nasal Sanitizer NASBOTH SCH ×2 (06:47→21:18)
[2025-07-31 06:54] LABS: BLOOD UREA NITROGEN,BUN 10.0 mg/dL (7-18); CARBON DIOXIDE,CO2 24.0 mmol/L (21-32); CHLORIDE,CL 107.0 mmol/L (100-108); CREATININE 1.3 mg/dL (0.8-1.3); EST CRCL DRUG DOSING (CG) 44.58 mL/min; ESTIMATED GFR 56.0 mL/min (>60); GLUCOSE RANDOM 92.0 mg/dL (74-106); POTASSIUM,K 3.7 mmol/L (3.6-5.2); SODIUM,NA 141.0 mmol/L (140-148)
[2025-07-31] MEDS ORDERED: Propofol 200 MG/20 ML SDV ONE ×2 (07:03→08:08)
[2025-07-31] MEDS ORDERED: Midazolam 1 MG/ML 2 ML SDV ONE (07:03)
[2025-07-31] MEDS ORDERED: fentaNYL 100 MCG/2 ML SDV ONE ×2 (07:03→08:13)
[2025-07-31] MEDS: Lactated Ringers 1,000 ML IV SCH (07:12)
[2025-07-31] MEDS ORDERED: ePHEDrine 50 MG/ML SDV ONE (08:17)
[2025-07-31] MEDS: Tranexamic Acid 750 MG in Sodium Chloride 0.9% 50 ML IV ONE (08:20)
[2025-07-31] MEDS: Ondansetron 4 MG/2 ML SDV IVPUSH PRN (12:10)
[2025-07-31] MEDS: Ketorolac 15 MG/ML SDV IVPUSH PRN (14:00)
[2025-08-01 06:22] LABS: PLATELET COUNT,PLT 164.0 K/uL (130-375); RED BLOOD CELL COUNT 2.76 M/uL (4.14-5.76); WHITE BLOOD CELL COUNT,WBC 7.4 K/uL (3.2-11.0)
[2025-08-01] MEDS: Aspirin 325 MG Tab.EC PO SCH (08:26)
[2025-08-01] MEDS: CANDESARTAN CILEXETIL 8 MG PO SCH (08:30)
[2025-08-02 06:14] VITALS: PULSE 69
[2025-08-02 10:17] VITALS: BP 108/59
== END 2025-08-02 10:22 | disposition home or self-care (01) | DRG 470 ==
LOC: JP.SDS 05:58 → JP.MS 10:20 → JP.SDS 08-01 12:11 → JP.MS 08-01 12:11
PROVIDERS: ADMIT Specialist; ATTEND Physician Assistant
PROC: 0SR90JA Replacement of Right Hip Joint with Synthetic Substitute, Uncemented, Open Approach (ICD-10-PCS; principal; 2025-07-31 07:30)
DX: M16.11 Unilateral primary osteoarthritis, right hip (principal); H91.90 Unspecified hearing loss, unspecified ear; I25.10 Atherosclerotic heart disease of native coronary artery without angina pectoris; E78.00 Pure hypercholesterolemia, unspecified; I10 Essential (primary) hypertension; K59.00 Constipation, unspecified; N40.0 Benign prostatic hyperplasia without lower urinary tract symptoms; N42.9 Disorder of prostate, unspecified; M54.9 Dorsalgia, unspecified; G89.29 Other chronic pain; F41.9 Anxiety disorder, unspecified; F32.A Depression, unspecified; Z96.659 Presence of unspecified artificial knee joint; I25.2 Old myocardial infarction; Z79.01 Long term (current) use of anticoagulants; Z88.8 Allergy status to other drugs, medicaments and biological substances; Z98.49 Cataract extraction status, unspecified eye; Z98.890 Other specified postprocedural states; Z95.0 Presence of cardiac pacemaker; Z95.5 Presence of coronary angioplasty implant and graft; Z86.73 Personal history of transient ischemic attack (TIA), and cerebral infarction without residual deficits; Z79.82 Long term (current) use of aspirin; Z79.899 Other long term (current) drug therapy
CPT/HCPCS: 36415; 72170; 72170-26; 73502-26-RT; 73502-RT; 80048; 85027; 97161-GP; 97530-GP; A9270-GY; C1713; C1776; J0690; J1885; J2250; J2405; J2704; J3010; J7030; J7120

== ENCOUNTER 2025-08-23 08:41 | Inpatient (IN) | payer MEDICARE, OTHER ==
[2025-08-23 09:18] LABS: PLATELET COUNT,PLT 282.0 K/uL (130-375); RED BLOOD CELL COUNT 2.95 M/uL (4.14-5.76); WHITE BLOOD CELL COUNT,WBC 5.8 K/uL (3.2-11.0)
[2025-08-23 09:29] LABS: BLOOD UREA NITROGEN,BUN 17.0 mg/dL (7-18); CARBON DIOXIDE,CO2 24.0 mmol/L (21-32); CHLORIDE,CL 105.0 mmol/L (100-108); CREATININE 1.2 mg/dL (0.8-1.3); EST CRCL DRUG DOSING (CG) 47.5 mL/min; ESTIMATED GFR 61.0 mL/min (>60); GLUCOSE RANDOM 98.0 mg/dL (74-106); POTASSIUM,K 3.8 mmol/L (3.6-5.2); SODIUM,NA 139.0 mmol/L (140-148)
[2025-08-23] MEDS: Nozin Nasal Sanitizer NASBOTH SCH ×2 (09:30→20:41)
[2025-08-23] MEDS: Lactated Ringers 1,000 ML IV SCH (09:30)
[2025-08-23 09:36] LABS: INR 1.1; PTT,PARTIAL THROMBOPLSTIN TIME 27.9 sec (21.8-27.3)
[2025-08-23] MEDS ORDERED: Midazolam 1 MG/ML 2 ML SDV ONE (10:28)
[2025-08-23] MEDS ORDERED: fentaNYL 100 MCG/2 ML SDV ONE (10:28)
[2025-08-23] MEDS ORDERED: Propofol 200 MG/20 ML SDV ONE ×2 (10:28→12:13)
[2025-08-23] MEDS ORDERED: Lactated Ringers 1,000 ML ONE ×2 (10:37→12:32)
[2025-08-23] MEDS ORDERED: Ondansetron 4 MG/2 ML SDV ONE (10:41)
[2025-08-23] MEDS ORDERED: ePHEDrine 50 MG/ML SDV ONE ×2 (11:06→11:45)
[2025-08-23] MEDS ORDERED: Phenylephrine 1% 10 MG/ML SDV ONE (11:57)
[2025-08-23] MEDS ORDERED: Ondansetron 4 MG/2 ML SDV IVPUSH PRN (13:13)
[2025-08-23] MEDS ORDERED: Lactated Ringers 1,000 ML IV SCH (13:30)
[2025-08-23] MEDS: Ketorolac 15 MG/ML SDV IVPUSH PRN (16:54)
[2025-08-24 06:49] LABS: PLATELET COUNT,PLT 200.0 K/uL (130-375); RED BLOOD CELL COUNT 3.05 M/uL (4.14-5.76); WHITE BLOOD CELL COUNT,WBC 7.0 K/uL (3.2-11.0)
[2025-08-24] MEDS: Aspirin 325 MG Tab.EC PO SCH (08:33)
[2025-08-24 14:00] LABS: PLATELET COUNT,PLT 204.0 K/uL (130-375); RED BLOOD CELL COUNT 3.01 M/uL (4.14-5.76); WHITE BLOOD CELL COUNT,WBC 8.9 K/uL (3.2-11.0)
[2025-08-25 06:28] LABS: PLATELET COUNT,PLT 161.0 K/uL (130-375); RED BLOOD CELL COUNT 2.59 M/uL (4.14-5.76); WHITE BLOOD CELL COUNT,WBC 7.4 K/uL (3.2-11.0)
[2025-08-25 10:41] LABS: IRON,FE 22 ug/dL (65-175); PERCENT FE SATURATION 16 % (20-55)
[2025-08-25] MEDS: Sodium Ferric Gluconate Cmplex 250 MG in Sodium Chloride 0.9% 100 ML IV ONE (11:54)
[2025-08-25] MEDS: Sennosides/Docusate Sodium 50-8.6 MG Tab PO SCH (11:54)
[2025-08-26 05:44] LABS: PLATELET COUNT,PLT 158.0 K/uL (130-375); RED BLOOD CELL COUNT 2.58 M/uL (4.14-5.76); WHITE BLOOD CELL COUNT,WBC 8.0 K/uL (3.2-11.0)
[2025-08-26] MEDS: Sodium Ferric Gluconate Cmplex 250 MG in Sodium Chloride 0.9% 100 ML IV ONE (11:17)
[2025-08-28 11:11] VITALS: BP 119/69; PULSE 59
== END 2025-08-28 12:35 | DRG 536 ==
LOC: JP.SDS 08:41 → JP.MS 13:13 → JP.SDS 08-24 12:11
PROVIDERS: ADMIT Physician Assistant; ATTEND Specialist
PROC: 30233P1 Transfusion of Nonautologous Frozen Red Cells into Peripheral Vein, Percutaneous Approach (ICD-10-PCS; principal; 2025-08-23 10:00)
DX: S72.001A Fracture of unspecified part of neck of right femur, initial encounter for closed fracture (principal); D62 Acute posthemorrhagic anemia; I25.10 Atherosclerotic heart disease of native coronary artery without angina pectoris; E78.00 Pure hypercholesterolemia, unspecified; I10 Essential (primary) hypertension; N40.0 Benign prostatic hyperplasia without lower urinary tract symptoms; N42.9 Disorder of prostate, unspecified; K59.00 Constipation, unspecified; M19.90 Unspecified osteoarthritis, unspecified site; M54.9 Dorsalgia, unspecified; G89.29 Other chronic pain; F41.9 Anxiety disorder, unspecified; H91.90 Unspecified hearing loss, unspecified ear; F32.A Depression, unspecified; Z96.659 Presence of unspecified artificial knee joint; Z96.649 Presence of unspecified artificial hip joint; I25.2 Old myocardial infarction; Z98.890 Other specified postprocedural states; Z85.46 Personal history of malignant neoplasm of prostate; Z88.8 Allergy status to other drugs, medicaments and biological substances; Z86.73 Personal history of transient ischemic attack (TIA), and cerebral infarction without residual deficits; Z98.49 Cataract extraction status, unspecified eye; Z79.01 Long term (current) use of anticoagulants; Z87.891 Personal history of nicotine dependence; Z79.82 Long term (current) use of aspirin; Z79.899 Other long term (current) drug therapy; Z95.0 Presence of cardiac pacemaker; Z95.5 Presence of coronary angioplasty implant and graft
CPT/HCPCS: 36415; 36430; 73501-26-RT; 73501-RT; 80048; 83550; 85018; 85027; 85610; 85730; 86850; 86900; 86901; 86920; 86922; 93005; 93010; 97110-GP; 97116-GP; 97161-GP; 97165-GO; 97530-GP; 99231; 99232; A9270-GY; C1713; C1776; J0690; J1790; J1885; J2250; J2371; J2405; J2704; J2916; J3010; J7030; J7120; P9016